=== PATIENT | female | born 1990 | race Caucasian/White ===

== ENCOUNTER 2016-12-17 11:56 | Outpatient (CLI) | payer OTHER ==
[~2016-12-17] VITALS: Ht 182.9 cm; Wt 125.6 kg
[~2016-12-17 11:56] MED LIST: NITR-58 PO
[2016-12-17 12:34] VITALS: Ht 182.9 cm; Wt 125.6 kg
[2016-12-17 12:35] VITALS: BP 123/77; PULSE 100; RESP 18
[2016-12-17] MEDS ORDERED: LEVO25TA59 PO (12:37)
--- NOTE | 2016-12-17 13:36 | RADRPT ---
PROCEDURE: US OB biophysical profile. CLINICAL INDICATION: decreased movements, post dates TECHNIQUE: Multiple sonographic images of the pelvis were obtained. The images were reviewed on a PACS workstation. COMPARISON: No prior studies are available for comparison. FINDINGS: There is a single viable intrauterine gestation. Cardiac activity is present with 154 beats per min charles. There is a vertex presentation. The placenta is posterior. There is no evidence of placental abruption. There is a normal amount of amniotic fluid with an NILDA = 10.1 cm. Biophysical profile: movement 2/2 tone 2/2. breathing 2/2 NILDA 2/2 Total 03/08 RPTAT: AA . IMPRESSION: Normal biophysical profile. . .Pranav Vegas MD, Date Time Electronically viewed and signed by .Pranav Vegas MD, MD on 12/17/2016 13:35 .S/
--- NOTE | 2016-12-17 13:49 | RADRPT ---
PROCEDURE: US OB. CLINICAL INDICATION: Size and dates , post dates TECHNIQUE: Multiple sonographic images of the pelvis and gravid uterus were obtained. The images were reviewed on a PACS workstation. COMPARISON: No prior studies are available for comparison. FINDINGS: There is a single viable intrauterine gestation. Cardiac activity is present with 154 beats per min charles. There is a vertex presentation. The placenta is posterior. There is no evidence for an abruption or placenta previa. There is a normal amount of amniotic fluid with an NILDA = 10.1 cm. Measurements were made in order to determine age. The results are as follows: BPD =9.7 cm HC =33.4 cm AC =35.4 cm FL =7.8 cm Estimated gestational age of approximately 39 weeks and 1 day based on ultrasound measurements. Clinical age: 40 weeks and 2 days. The estimated date of delivery is 12/23/16, based on ultrasound measurements. The EFW = 3750 g, 56%, based on LMP age. RPTAT: AA IMPRESSION: Single viable intrauterine gestation of approximately 39 weeks and 1 day based on ultrasound measur ements. .Pranav Vegas MD, MD Date Time Electronically viewed and signed by .Pranav Vegas MD, on 12/17/2016 13:49 .S/
--- NOTE | 2016-12-17 14:30 | QN ---
Documentation Comment Antepartum Testing for post EMILI NST Category I BPP 03/08 Patient has no complaint and reports good movement. LUCI DUFFY MD December 17, 2016 14:30
--- NOTE | 2016-12-17 14:30 | TRIAGE ---
OB Triage Datetime Report Generated by CPN: 12/17/2016 14:30 Datetime: 12/17/2016 14:00 Labor Evaluation Frequency: OCCAS Monitor Mode: External Duration (sec)2399: 50-70 Quality: Mild Pattern: Normal: <= 5 Contractions in 10 Minutes Resting Tone [place]: Relaxed Heart Rate FHR Baseline Rate: 145 Monitor Mode: External US FHR Baseline Changes: No Baseline Change Variability: Moderate 6-25 bpm Accelerations: 15X15 Decelerations: None Category: Category I Datetime: 12/17/2016 12:50 Labor Evaluation Frequency: OCCAS Monitor Mode: External Duration (sec)2399: 50-80 Quality: Mild Pattern: Normal: <= 5 Contractions in 10 Minutes Resting Tone [place]: Relaxed Heart Rate FHR Baseline Rate: 150 Monitor Mode: External US Variability: Moderate 6-25 bpm Accelerations: 15X15 Decelerations: None Category: Category I Datetime: 12/17/2016 12:44 Assessment Type: Admission Assessment Maternal Assessment Level of Consciousness: Fully Conscious DTR's/Clonus: DTRs 2+; No Clonus Headache: Denies Blurred Vision: No Respiratory Effort: Unlabored; Regular Rhythm; Equal Expansion Breath Sounds, Left: Clear and Equal Breath Sounds, Right: Clear and Equal Nausea/Vomiting: Denies RUQ Epigastric Pain: Denies Lower Extremities Edema: None Degree: None Upper Extremities Edema: None Degree: None Facial Edema: None Fall Risk Assessment History of Falling: (0) No Secondary Diagnosis: (0) No Ambulatory Aid: (0) Bedrest/Nurse Assist IV Therapy: (0) No Gait: (0) Normal/Bedrest/Immobile Mental Status: (0) Oriented to Own Ability Fall Score: 0 Fall Risk Score Definition: No Risk: No action required Datetime: 12/17/2016 12:43 EGA: 40.2 Datetime: 12/17/2016 12:42 Time of Arrival: 12/17/2016 11:50 Arrived By: Ambulatory Arrived From: Home Chief Complaint: POST DATES Movement: Present Contractions: Denies/Absent Rupture of Membranes: Denies Vaginal Bleeding: None Vaginal Discharge: Denies Recent Sexual Intercouse: Denies Abdominal Trauma: Not Applicable Patient Complaints: Other Time Provider Notified: 12/17/2016 13:08 Provider Notified: DR DUFFY Initial Plan: MACOT, P WITH NILDA AND EFW
== END 2016-12-17 14:30 | disposition home or self-care (01) ==
LOC: OBT 11:56 → L-D 11:57 → OBT 14:30
PROVIDERS: ATTEND Obstetrics & Gynecology
DX: O48.0 Post-term pregnancy (principal); Z3A.40 40 weeks gestation of pregnancy
CPT/HCPCS: 76815; 76818; G0463

== ENCOUNTER 2016-12-18 11:03 | Inpatient (IN) | payer OTHER ==
[~2016-12-18] VITALS: Ht 182.9 cm; Wt 124.5 kg
[~2016-12-18 11:03] MED LIST changes: +LEVO25TA59 PO
[2016-12-20 11:41] VITALS: Ht 182.9 cm; Wt 124.5 kg
[2016-12-20 11:42] VITALS: BP 143/87; PULSE 88; RESP 20
[2016-12-20] MEDS ORDERED: PRENAT PO (11:46)
[2016-12-20] MEDS ORDERED: LACTATED RINGER'S 1,000 ML IV SCH (11:46)
[2016-12-20] MEDS ORDERED: CARBOPROST 250 MCG INJ IM PRN (12:00)
[2016-12-20] MEDS ORDERED: OXYTOCIN 30 UNITS/LR 500 ML IV SCH (12:00)
[2016-12-20] MEDS ORDERED: ACETAMINOPHEN/CODEINE #3 TAB PO PRN (12:00)
[2016-12-20] MEDS ORDERED: METHYLERGONOVINE 0.2 MG INJ IM PRN (12:00)
[2016-12-20] MEDS ORDERED: BUTORPHANOL 2 MG INJ IV PRN (12:00)
[2016-12-20] MEDS ORDERED: OXYTOCIN 30 UNITS/LR 500 ML IV PRN (12:00)
[2016-12-20] MEDS ORDERED: IBUPROFEN 600 MG TAB PO PRN (12:00)
[2016-12-20] MEDS ORDERED: AMPICILLIN 2 GM/NS (PMX) 100 ML ONE (12:25)
[2016-12-20 12:27] LABS: ADD SCAN DIFF NO
[2016-12-20] MEDS ORDERED: AMPICILLIN 2 GM/NS (PMX) 100 ML IVPB ONE (12:30)
[2016-12-20 12:37] LABS: BASOPHIL # 0.1 10^3/ul (0.0-0.1); BASOPHILS % 0.4 % (0.0-2.0); EOSINOPHILS # 0.1 10^3/ul (0.0-0.5); EOSINOPHILS % 0.6 % (0.0-7.0); HEMATOCRIT 37.9 % (37.0-47.0); HEMOGLOBIN 12.4 g/dl (12.0-16.0); LYMPHOCYTES # 2.2 10^3/ul (0.8-2.9); LYMPHOCYTES % 17.6 % (15.0-51.0); MEAN CORPUSCULAR HEMOGLOBIN 27.1 pg (29.0-33.0); MEAN CORPUSCULAR HGB CONC 32.7 g/dl (32.0-37.0); MEAN CORPUSCULAR VOLUME 82.8 fl (82.0-101.0); MEAN PLATELET VOLUME 9.9 fl (7.4-10.4); MONOCYTE # 0.6 10^3/ul (0.3-0.9); MONOCYTES % 5.1 % (0.0-11.0); NEUTROPHIL # 9.3 10^3/ul (1.6-7.5); NEUTROPHILS % 74.5 % (39.0-77.0); PLATELET COUNT 404 10^3/UL (140-415); RED BLOOD COUNT 4.58 10^6/ul (4.20-5.40); RED CELL DISTRIBUTION WIDTH 16.2 % (11.5-14.5); WHITE BLOOD COUNT 12.5 10^3/ul (4.8-10.8)
[2016-12-20 12:53] LABS: INR 0.93; PROTIME 12.5 Sec (12.2-14.2)
[2016-12-20 12:54] LABS: PARTIAL THROMBOPLASTIN TIME 28.6 Sec (25.0-35.0)
[2016-12-20] MEDS ORDERED: LACTATED RINGER'S 1,000 ML IV PRN (13:00)
[2016-12-20] MEDS: AMPICILLIN 1 GM/NS (PMX) 50 ML IVPB SCH ×2 (16:32→19:58)
--- NOTE | 2016-12-20 19:46 | HP ---
Date/Time of Note Date/Time of Note DATE: 12/20/16 TIME: 19:44 OB - History Hx of Present Chief Complaint: contractions Estimated Due Date: December 15, 2016 : 1 Para: 0 Spontaneous : 0 Therapeutic : 0 Care: Good Care Ultrasounds: Normal mid trimester US Obstetrical Complications: None Medical Complications: None Past Family/Social History * Past Medical, Surgical, Family and Obstetric Histories reviewed from chart. GBS Status: Positive OB Admission Exam Vital Signs Vital Signs Vital Signs Date Time Temp Pulse Resp B/P Pulse Ox O2 Delivery O2 Flow Rate FiO2 12/20/16 11:42 98.3 88 20 143/87 Room Air Physical Exam Cervical Dilatation: 4cm Effacement: 75% Station: -1 Membranes: Intact Heart Rate: 140's Accelerations: Accelerations Present Decelerations: No Decelerations Varibility: Moderate Last 72 hours Lab Results CBC & BMP 12/20/16 12:00 OB Assessment/Plan Reason for admission: active labor Plan: Expectant Management LUCI DUFFY MD December 20, 2016 19:46
[2016-12-20 19:47] LABS: ALBUMIN 3.4 g/dl (3.3-4.9)
[2016-12-20 19:48] LABS: POTASSIUM 3.9 mmol/L (3.5-5.1)
[2016-12-20 19:50] LABS: ALBUMIN/GLOBULIN RATIO 0.87; BILIRUBIN,INDIRECT 0.2 mg/dl (0-1.1); BILIRUBIN,TOTAL 0.2 mg/dl (0.2-1.3); CREATININE 0.55 mg/dl (0.44-1.00); TOTAL PROTEIN 7.3 g/dl (6.1-8.1); URIC ACID 4.8 mg/dl (3.1-7.9)
[2016-12-20 19:51] LABS: CALCIUM 9.3 mg/dl (8.4-10.2)
[2016-12-20] MEDS: OXYTOCIN 30 UNITS/LR 500 ML IV SCH ×2 (20:09→20:36)
[2016-12-20] MEDS: LIDOCAINE 1% (MPF) 30 ML INJ INJ PRN ×2 (20:10→20:19)
[2016-12-20] MEDS: MISOPROSTOL 200 MCG TAB PR PRN (20:13)
[2016-12-20] MEDS ORDERED: morphine 10 MG INJ ONE (20:17)
[2016-12-20] MEDS ORDERED: LIDOCAINE 1% (MPF) 30 ML INJ INJ PRN (20:30)
[2016-12-20] MEDS ORDERED: morphine 10 MG INJ IV ONE (20:30)
--- NOTE | 2016-12-20 20:57 | LDN ---
Date/Time of Note Date/Time of Note DATE: 12/20/16 TIME: 20:54 Delivery Summary Weeks of Gestation 40 weels and 5 days Placenta Delivered: Spontaneously Meconium: none Episiotomy: No Laceration repair: Second degree perineal and vaginal lacerations repaired with 3-0 Vicryl Anesthesia type: Local Estimated blood loss: 400 Sponge & Needle done & correct: Yes All needle counts correct: Yes Any foreign bodies felt in the: No Problems: Infant Delivery Information Sex Infant Sex: female Apgars 1 Minute: 9 5 Minute: 9 Suctioning Nose & mouth suctioned at bonita: Yes Delee suction performed: No Umbilical Cord Umbilical cord with: 3 Vessels Cord presentations: no nuchal cord Cord Blood was obtained: Yes Mother & Baby Disposition Disposition Mom & Baby to Maternity; Good: Yes LUCI DUFFY MD December 20, 2016 20:57
[2016-12-21] MEDS: MISOPROSTOL 200 MCG TAB PR PRN (00:16)
[2016-12-21 00:50] VITALS: BP 127/85; PULSE 82; RESP 18
[2016-12-21] MEDS ORDERED: OXYTOCIN 30 UNITS/LR 500 ML IV PRN (01:00)
[2016-12-21] MEDS ORDERED: METHYLERGONOVINE 0.2 MG INJ IM PRN (01:00)
[2016-12-21] MEDS ORDERED: BENZOCAINE 20% 56 ML SPRAY TOP PRN (01:00)
[2016-12-21] MEDS ORDERED: DIBUCAINE 1% 30 GM OINT PR PRN (01:00)
[2016-12-21] MEDS ORDERED: WITCH HAZEL/GLYCERIN PAD PR PRN (01:00)
[2016-12-21] MEDS ORDERED: CARBOPROST 250 MCG INJ IM PRN (01:00)
[2016-12-21] MEDS ORDERED: MISOPROSTOL 200 MCG TAB PR PRN (01:00)
[2016-12-21] MEDS ORDERED: ACETAMINOPHEN 325 MG TAB PO PRN (01:00)
[2016-12-21 03:30] VITALS: BP 135/64; PULSE 100; RESP 18
[2016-12-21] MEDS: IBUPROFEN 600 MG TAB PO SCH ×4 (05:57→18:39)
[2016-12-21] MEDS: LACTATED RINGER'S 1,000 ML IV* SCH ×2 (05:58→08:59)
[2016-12-21 07:45] VITALS: BP 120/73; PULSE 86; RESP 18
[2016-12-21 08:46] LABS: ADD SCAN DIFF NO
[2016-12-21 08:57] LABS: ABNORMAL IP MESSAGE 1; BASOPHILS % 0.2 % (0.0-2.0); EOSINOPHILS # 0.1 10^3/ul (0.0-0.5); EOSINOPHILS % 0.3 % (0.0-7.0); HEMOGLOBIN 9.5 g/dl (12.0-16.0); LYMPHOCYTES # 3.2 10^3/ul (0.8-2.9); LYMPHOCYTES % 18.3 % (15.0-51.0); MEAN CORPUSCULAR HEMOGLOBIN 26.2 pg (29.0-33.0); MEAN CORPUSCULAR HGB CONC 31.7 g/dl (32.0-37.0); MEAN CORPUSCULAR VOLUME 82.9 fl (82.0-101.0); MEAN PLATELET VOLUME 9.9 fl (7.4-10.4); MONOCYTE # 1.5 10^3/ul (0.3-0.9); MONOCYTES % 8.7 % (0.0-11.0); NEUTROPHIL # 12.6 10^3/ul (1.6-7.5); NEUTROPHILS % 71.4 % (39.0-77.0); PLATELET COUNT 322 10^3/UL (140-415); RED BLOOD COUNT 3.62 10^6/ul (4.20-5.40); RED CELL DISTRIBUTION WIDTH 16.3 % (11.5-14.5); WHITE BLOOD COUNT 17.6 10^3/ul (4.8-10.8)
[2016-12-21] MEDS: SENNA/DOCUSATE NA (8.6MG/50MG) TAB PO SCH ×2 (09:30→21:02)
[2016-12-21 11:50] VITALS: BP 124/68; PULSE 97; RESP 19
[2016-12-21] MEDS: FERROUS SULFATE (EC) 325 MG TAB PO SCH ×2 (13:22→21:02)
[2016-12-21] MEDS: ACETAMINOPHEN/CODEINE #3 TAB PO PRN ×2 (14:26→21:02)
[2016-12-21 15:40] VITALS: BP 117/70; PULSE 95; RESP 20
[2016-12-21 19:45] VITALS: BP 131/67; PULSE 105; RESP 20
--- NOTE | 2016-12-21 20:30 | QN ---
Documentation Comment No complaint Afebrile VSS Fundus Firm Lochia moderate PPD #1 stable Continue with present care. LUCI DUFFY MD December 21, 2016 20:30
[2016-12-22] VITALS: BP 106/62; PULSE 76; RESP 19
[2016-12-22] MEDS: IBUPROFEN 600 MG TAB PO SCH ×4 (00:15→18:00)
[2016-12-22 04:00] VITALS: BP 108/67; PULSE 75; RESP 18
[2016-12-22] MEDS: FERROUS SULFATE (EC) 325 MG TAB PO SCH ×3 (08:38→21:27)
[2016-12-22] MEDS: SENNA/DOCUSATE NA (8.6MG/50MG) TAB PO SCH ×2 (08:40→21:27)
[2016-12-22] MEDS: ACETAMINOPHEN/CODEINE #3 TAB PO PRN ×2 (08:41→14:41)
[2016-12-22] MEDS ORDERED: DIPHTH/TET/ACEL PERTUSS (ADULT) 0.5 ML VIAL IM* ONE (09:00)
[2016-12-22 09:01] LABS: ADD SCAN DIFF NO
[2016-12-22 09:04] LABS: BASOPHIL # 0.1 10^3/ul (0.0-0.1); BASOPHILS % 0.4 % (0.0-2.0); EOSINOPHILS # 0.1 10^3/ul (0.0-0.5); EOSINOPHILS % 0.7 % (0.0-7.0); HEMATOCRIT 29.4 % (37.0-47.0); HEMOGLOBIN 9.2 g/dl (12.0-16.0); LYMPHOCYTES # 3.1 10^3/ul (0.8-2.9); LYMPHOCYTES % 24.8 % (15.0-51.0); MEAN CORPUSCULAR HEMOGLOBIN 26.6 pg (29.0-33.0); MEAN CORPUSCULAR HGB CONC 31.3 g/dl (32.0-37.0); MEAN PLATELET VOLUME 9.6 fl (7.4-10.4); MONOCYTE # 0.6 10^3/ul (0.3-0.9); MONOCYTES % 5.2 % (0.0-11.0); NEUTROPHIL # 8.2 10^3/ul (1.6-7.5); NEUTROPHILS % 66.3 % (39.0-77.0); PLATELET COUNT 329 10^3/UL (140-415); RED BLOOD COUNT 3.46 10^6/ul (4.20-5.40); RED CELL DISTRIBUTION WIDTH 16.6 % (11.5-14.5); WHITE BLOOD COUNT 12.4 10^3/ul (4.8-10.8)
--- NOTE | 2016-12-22 12:18 | DS ---
Date/Time of Note Date/Time of Note DATE: 12/22/16 TIME: 12:14 Obstetrical Discharge Record Final Diagnosis Final Diagnosis: Term delivered Vaginal Delivery Obstetrical Delivery: Spontaneous, Laceration, Repaired Condition on Discharge Physical Assessment Voiding: Yes Bowel Movement: Yes Breast: Soft, non-tender Fundus: Firm Calf Tenderness: No Patient Condition: Stable LUCI DUFFY MD December 22, 2016 12:18
[2016-12-22 16:00] VITALS: BP 121/70; PULSE 82; RESP 18
[2016-12-22 20:00] VITALS: BP 101/63; PULSE 85; RESP 20
== END 2016-12-22 21:30 | disposition home or self-care (01) | DRG 775 ==
LOC: EDSTATUS 11:03 → L-D 12-20 11:05 → PP1 12-21 00:46
PROVIDERS: ADMIT Obstetrics & Gynecology; ATTEND Obstetrics & Gynecology
PROC: 10E0XZZ Delivery of Products of Conception, External Approach (ICD-10-PCS; principal; 2016-12-20)
PROC: 0KQM0ZZ Repair Perineum Muscle, Open Approach (ICD-10-PCS; 2016-12-20)
PROC: 3E00X4Z Introduction of Serum, Toxoid and Vaccine into Skin and Mucous Membranes, External Approach (ICD-10-PCS; 2016-12-22)
DX: O71.4 Obstetric high vaginal laceration alone (principal); Z37.0 Single live birth; O48.0 Post-term pregnancy; Z23 Encounter for immunization; Z3A.40 40 weeks gestation of pregnancy
CPT/HCPCS: 80053; 84560; 85025; 85610; 85730; 86592; 86900; 86901; 87340; 90715; J0290; J2210; J2270; J2590; J7120